=== PATIENT | female | born 1990 | race Caucasian/White ===

== ENCOUNTER 2018-12-23 10:47 | Emergency (ER) | payer MEDICAID ==
[2018-12-23 11:27] LABS: Bilirubin Negative (Negative); Blood, Urine Large (Negative); Clarity CLEAR (Clear); Glucose, Urine (Dipstick) Negative (Negative); Leukocyte Negative (Negative); Nitrite Negative (Negative); Protein, Urine (Dipstick) Negative (Neg-Trace); Specific Gravity, Urine 1.006 (1.002-1.036); Urobilinogen 0.2 mg/dL (0.2-1.0)
[2018-12-23 11:34] LABS: Bacteria/HPF Rare-Few HPF (None Seen); Hyaline Casts/LPF 0-3 HYALINE CAST LPF (0-3 Hyaline); RBC/HPF 0-3 HPF (0-3); Squamous Epithelial 0-3 HPF (0-3); WBC/HPF 0-3 HPF (0-3)
[2018-12-23 13:05] LABS: #Basophils 0.1 thou/uL (0.0-0.2); #Eosinphils 0.4 thou/uL (0.0-0.7); #Lymphocytes 2.9 thou/uL (1.20-3.40); #Monocytes 0.7 thou/uL (0.11-0.59); #Neutrophils 6.4 thou/uL (1.40-6.50); %Basophils 0.7 % (0.0-1.0); %Eosinophils 3.8 % (0.0-10.0); %Lymphocytes 27.5 % (21.0-51.0); %Monocytes 6.8 % (0.0-10.0); %Neutrophils 61.2 % (42.0-75.0); Hemoglobin 13.6 g/dL (12.0-16.0); Mean Corpuscular HGB CONC 33.5 g/dL (32.0-36.0); Mean Corpuscular Hemoglobin 32.4 pg (27.0-31.0); Mean Platelet Volume 8.6 fL (7.4-10.4); Platelet Count 293 thou/uL (130-400); RBC Distribution Width 11.4 % (11.5-14.5); Red Blood Cell (RBC) Count 4.18 mill/uL (4.20-5.40); White Blood Cell (WBC) Count 10.5 thou/uL (4.8-10.8)
--- NOTE | 2018-12-23 13:53 | ULT ---
PELVIC ULTRASOUND: Date: 12/23/18 HISTORY: Vaginal bleeding since . Bright red blood. COMPARISON: None. TECHNIQUE: Transabdominal and endovaginal imaging of the pelvis is performed. Ovaries are interrogated with Feliz scale, color flow, Doppler imaging, and spectral waveform analysis. FINDINGS: Backside Grinder states active bleeding while exam being performed. Uterus is identified, measuring 7.7 x 3.0 x 7.7 cm. Within the endometrium is a gestational sac with a diameter of 0.7 cm, corresponding to a gestational age of 5 weeks/3 days. Yolk sac is not appreciat ed. Questionable pole. Gestational age of pole is not documented due to the size of the f etal pole. In addition, heart tones are not appreciated. The gestational sac is in the mid port ion of the endometrium. Right ovary has a normal echotexture, measuring 2.3 x 2.2 x 1.4 cm. In the left adnexa, there is a hy poechoic focus measuring 2.9 x 2.8 x 1.7 cm, presumed to be the left ovary. There is no significant free fluid in the pelvis. Ovarian Doppler: There is vascular flow to the left and right adnexal structures, which are presumed to be ovaries. IMPRESSION: Findings suggesting an intrauterine gestation without definite heart tones. Given the presence of active bleeding, an ongoing spontaneous is favored. Nevertheless, follow-up ultrasound an d serial beta HCGs are recommended. POS: MYCHAL
== END 2018-12-23 13:52 | disposition home or self-care (01) ==
LOC: ERS 10:47
DX: O20.0 Threatened abortion (principal); O99.331 Smoking (tobacco) complicating pregnancy, first trimester; F17.210 Nicotine dependence, cigarettes, uncomplicated; Z3A.01 Less than 8 weeks gestation of pregnancy
CPT/HCPCS: 36415; 76856; 81003; 81015; 84702; 85025; 86900; 86901

== ENCOUNTER 2020-08-26 16:37 | Day surgery (SDC) | payer MEDICAID, OTHER ==
[2020-08-26 17:08] VITALS: BMI 40.8
[2020-08-26] MEDS ORDERED: hydrALAZINE 20 MG/ML VIAL SLOW IVP PRN (17:39)
[2020-08-26 18:12] LABS: #Basophils 0.1 thou/uL (0.0-0.2); #Eosinphils 0.2 thou/uL (0.0-0.7); #Monocytes 0.9 thou/uL (0.11-0.59); #Neutrophils 6.8 thou/uL (1.40-6.50); %Basophils 0.6 % (0.0-1.0); %Eosinophils 2.1 % (0.0-10.0); %Lymphocytes 20.3 % (21.0-51.0); %Monocytes 8.7 % (0.0-10.0); %Neutrophils 68.3 % (42.0-75.0); Hemoglobin 10.7 g/dL (12.0-16.0); Mean Corpuscular HGB CONC 33.3 g/dL (32.0-36.0); Mean Corpuscular Hemoglobin 33.1 pg (27.0-31.0); Mean Corpuscular Volume 99.3 fL (78.0-98.0); Mean Platelet Volume 10.2 fL (7.4-10.4); Platelet Count 216 thou/uL (130-400); RBC Distribution Width 13.2 % (11.5-14.5); Red Blood Cell (RBC) Count 3.24 mill/uL (4.20-5.40); White Blood Cell (WBC) Count 9.9 thou/uL (4.8-10.8)
[2020-08-26 18:31] LABS: ALT (SGPT) 29 U/L (8-55); AST (SGOT) 27 U/L (5-34); Albumin 2.9 g/dL (3.5-5.0); Alkaline Phosphatase 150 U/L (40-110); Anion Gap 12 mmol/L (10-20); BUN (Urea Nitrogen) 11 mg/dL (7.0-18.7); Bilirubin, Total 0.5 mg/dL (0.2-1.2); Calc. Creatinine Clearance 234 mL/min (70-130); Calcium 8.9 mg/dL (7.8-10.44); Carbon Dioxide 22 mmol/L (22-29); Chloride 107 mmol/L (98-107); Globulin 3.1 g/dL (2.4-3.5); Glucose 103 mg/dL (70-105); Sodium 137 mmol/L (136-145)
[2020-08-26 19:12] LABS: Creatinine, Urine 91.03 mg/dL (47-110)
--- NOTE | 2020-08-26 20:15 | PDOC.FPROB ---
FMR OB H&P: HPI - History of Present Illness Chief Complaint: vision changes History of Present Illness: Pt is a 30 yo @36.3wga who presents from [facility] with cc of vision change with outpatient diagnosis of scotoma. She had no elevated pressures at clinic today. Talking with patient, it seems like over the last several weeks patient endorses vision changes that occur only whenever she moves her head quickly and changes directions or goes from sitting or laying down to standing. She de scribes her vision as a little blurry with spots that "look like fire flies" and shortly after onset, resolve spontaneously. She states she does not drink much water and does not think she is hydrated. These episodes never occur at rest. She denies EWING, CP, SOB, abdominal pain. She endorses hand and LE swelling. She endorses no history of high BP and no complications with her previous delivery. Endorses good movement, no VB/VD/LOF/ctx. 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 denies: eye pain, double vision Cardiovascular: denies: chest pain, palpitation Gastrointestinal: denies: abdominal pain, vomiting, diarrhea Genitourinary (Female): denies: vaginal discharge, vaginal bleeding, vaginal pressure Neurologic: denies: numbness, syncope, seizures, weakness, loss of counsciousness, headache FMR OB H&P: Vital Signs - Maternal Vital signs: BP mainly 130SBP Two readings of SBP >140 one reading of 161/71 but BP cuff was around patient's elbow. Once readjusted, SBP 135. - Heart Tones Baseline: 140 Variability: moderate Acceleration: present Deceleration: absent Category: category 1 [place] contractions every: irritability FMR OB H&P: Physical Exam - Physical Exam General: NAD, awake, alert and oriented HEENT: normocephalic and atraumatic, PERRLA, EOMI, MMM, grossly normal vision, grossly normal hearing Neck: supple Heart: RRR, normal S1/S2 General: CTAB, no respiratory distress Abdomen: soft, gravid, non-tender Musculoskeletal: FROM in all four extremities Skin: no rash, good tugor, no jaundice Lymphatic: no unusual bruising or bleeding Psychiatric: intact recent and remote memory, good judgement and insight, normal mood and affect FMR OB H&P: Results - Labs Lab results: Laboratory Results - last 24 hr 08/26/20 08/26/20 08/26/20 17:35 17:58 17:58 WBC 9.9 RBC 3.24 L Hgb 10.7 L Hct 32.2 L MCV 99.3 H MCH 33.1 H MCHC 33.3 RDW 13.2 Plt Count 216 MPV 10.2 Neutrophils % 68.3 Lymphocytes % 20.3 L Monocytes % 8.7 Eosinophils % 2.1 Basophils % 0.6 Neutrophils # 6.8 H Lymphocytes # 2.0 Monocytes # 0.9 H Eosinophils # 0.2 Basophils # 0.1 Sodium 137 Potassium 4.0 Chloride 107 Carbon Dioxide 22 Anion Gap 12 BUN 11 Creatinine 0.63 Estimated GFR (MDRD) Greater than 90 Glucose 103 Calcium 8.9 Total Bilirubin 0.5 AST 27 ALT 29 Alkaline Phosphatase 150 H Serum Total Protein 6.0 Albumin 2.9 L Globulin 3.1 Albumin/Globulin Ratio 0.9 L U Random Total Protein 60 H Urine Creatinine 91.03 FMR OB H&P: A/P Disposition: Pt is a 30 yo @36.3wga who presents from [facility] with cc of vision change with outpatient diagnosis of scotoma #vision changes * outpatient dx of scotoma, upon further questioning, seems as if vision changes are not 2/2 scotoma * likely 2/2 dehydration * encouraged PO intake and hydration #concern for pre-E: * Pre- E labs ordered: WNL with exception of urine protein/Cr ratio of .7g/day * two BP readings >140 SBP * diagnosis of Pre-E given these two findings * plan for expectant management and delivery at 37 weeks * instructed patient to follow up with [facility] tomorrow at get scheduled for ind uction and to get a BP cuff * return to L&D precautions given Discussion: Date/Time: 08/26/202011 This H&P was discussed with Dr. Tesfaye and Dr. Solis who agree with the above documentation and plan. Addendum - Attending - Attending Attestation Date/Time: 08/27/20 07 I personally evaluated the patient and discussed the management with Dr. Roberto. I agree with the History, Examination, Assessment and Plan documented above. New dx preeclampsia. No e/o severe features. F/u in clinic and schedule induction for 37 weeks.
[2020-08-28 20:33] LABS: Chlam.trachomatis by PCR,Urine Not Detected (NotDetected)
== END 2020-08-26 20:55 | disposition home or self-care (01) ==
LOC: L&D/OP 16:37
PROVIDERS: ATTEND Family Medicine
DX: O14.93 Unspecified pre-eclampsia, third trimester (principal); O99.891 Other specified diseases and conditions complicating pregnancy; H53.459 Other localized visual field defect, unspecified eye; Z3A.36 36 weeks gestation of pregnancy
CPT/HCPCS: 36415; 80053; 82570; 84156; 85025; 87480; 87491; 87510; 87591; 87660

== ENCOUNTER 2020-08-30 12:19 | Inpatient (IN) | payer OTHER ==
[2020-08-30] MEDS ORDERED: Bupivacaine 0.25% HCL 30 ML VIAL ONE (12:46)
[2020-08-30] MEDS: Lactated Ringer's 1,000 ML IV SCH ×2 (13:40→15:16)
[2020-08-30 13:52] VITALS: BMI 40.3
[2020-08-30] MEDS ORDERED: Acetaminophen 500 MG TAB PO PRN (14:10)
[2020-08-30] MEDS ORDERED: Butorphanol Tartrate 1 MG/ML VIAL SLOW IVP PRN (14:10)
[2020-08-30] MEDS ORDERED: Promethazine HCl 25 MG/ML VIAL IM PRN (14:10)
[2020-08-30] MEDS ORDERED: Ibuprofen 800 MG TAB PO PRN (14:10)
[2020-08-30] MEDS ORDERED: Ondansetron PF 4 MG/2 ML Vial IVP PRN (14:10)
[2020-08-30] MEDS ORDERED: hydrALAZINE 20 MG/ML VIAL SLOW IVP PRN (14:10)
[2020-08-30] MEDS ORDERED: NS / Oxytocin 40 units/1000ml 1,000 ML IV PRN (14:10)
[2020-08-30] MEDS ORDERED: Lidocaine 1% (PF) 30 ML VIAL SC PRN (14:10)
--- NOTE | 2020-08-30 14:21 | PDOC.FPROB ---
FMR OB H&P: HPI - History of Present Illness Chief Complaint: mIOL for pre-eclampsia Indentification: 30yo at 37.0wks History of Present Illness: This is a 30yo at 37.0wks who was sent from the Clinic for mIOL due to a diagnosis of pre-eclampsia. She currently denies EWING, vision changes, RUQ pain, dyspnea, CP. She endorses some LE and hand edema. Primary Care Physician: [facility] - Dr. Alma Salazar FMR OB H&P: Current - Care : 3 Para: 1011 Gestational age: 37.0 Due date: 09/20/2020 Dating Criteria: 2T U/S Course/Complications: Late to care Multiple positive UDS during Diagnosed with preeclampsia at 36.4 WGA - OB Labs Blood type: O RH: positive Antibody Screen: negative HIV: negative RPR: negative HepBsAg: negative Rubella: immune Urine drug screen: positive Gonorrhea: negative Chlamydia: negative Pap Smear: NILM, HR-HPV 16 positive 1 hour gtt: failed 3 hour GTT: passed GBS: unknown (Final result pending. 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 No issues with anesthesia. - Social History Social History: Endorses tobacco use, denies drug/alcohol use during - Family History Family History: Hx of DM in MGM and Mom. Denies family hx of HTN or complications with anesthesia FMR OB H&P: Medications - Current Home Medications: Medication Instructions Recorded Confirmed Type Vit37/Iron/Folic Acid 1 tab PO DAILY 08/26/20 08/26/20 History [Prenata Chewable Tablet] Pantoprazole Sodium [Protonix] 20 mg PO DAILY 08/30/20 08/30/20 History Allergies/Adverse Reactions: Allergies Allergy/AdvReac Type Severity Reaction Status Date / Time No Known Allergies Allergy Verified 08/26/20 17:02 FMR OB H&P: ROS - Review of Systems General: denies: fever/chills Eyes: denies: vision changes, double vision, scotomas (Only when bending/standing too quickly), floaters ENT: denies: nasal congestion, sore throat Cardiovascular: denies: chest pain, edema Respiratory: denies: cough, congestion, shortness of breath Gastrointestinal: denies: abdominal pain, nausea, vomiting, diarrhea Genitourinary (Female): denies: dysuria, hematuria, vaginal discharge, vaginal bleeding, contractions Musculoskeletal: reports: swelling (in LE and hands) Neurologic: reports: headache (resolves with ibuprofen) Integumentary: denies: itching, rash Hematologic/Lymphatic: denies: prolonged or excessive bleeding FMR OB H&P: Vital Signs - Maternal Vital signs: Vital Signs - First Documented Temp Pulse Resp BP Pulse Ox 98.6 F 106 H 18 156/82 H 99 08/30/20 13:42 08/30/20 13:42 08/30/20 13:42 08/30/20 13:42 08/30/20 13:42 - Heart Tones Baseline: 140 Variability: marked Acceleration: present Deceleration: absent Category: category 1 [place] contractions every: N/A FMR OB H&P: Physical Exam - Physical Exam General: NAD, awake, alert and oriented HEENT: normocephalic and atraumatic, EOMI, grossly normal vision, grossly normal hearing Neck: supple, FROM Chest: non-tender to palpation, no lesions Heart: RRR, normal S1/S2, no murmurs/rubs/gallops, pulses present General: CTAB, no respiratory distress, good air movement Abdomen: soft, gravid, bowel sound present Musculoskeletal: pulses present (2+ dp b/l), FROM in all four extremities Neurological: no focal deficit Skin: no rash Lymphatic: no unusual bruising or bleeding Psychiatric: intact recent and remote memory, good judgement and insight, normal mood and affect - Pelvic Exam SVE: 2/50/-2 Alvares score: 5 Membranes: Intact FMR OB H&P: A/P Disposition: This is a 30yo at 37.0 WGA sent from Clinic for mIOL due to pre-eclampsia sIUP with pre-eclampsia - Pre-eclampsia diagnosed at 36.4wks. mIOL at 37.0 - Continuous FM reassuring: baseline 140, marked variability, multiple accels - Cervical check /-2 at 1430 Recheck in 3-4hrs - Alvares score 5 - Cytotec for induction - GBS culture results pending Multi-drug use in - Tobacco use during Smoking cessation counseling Can provide nicotine patch, if needed - Multiple UDS positive for THC, amphetamines, methamphetamines UDS ordered CM consulted GERD - Takes Protonix. Continue Anemia in - CBC ordered - On Fe supplementation. Continue Hx of vacuum-assisted vaginal delivery NILM, positive for HR-HPV 16 - Recommend colpo at 6wks PP Dispo: anticipate Discussion: Date/Time: 08/30/20 1419 This H&P was discussed with Dr. Pankaj Gordillo and Dr. Jim Garcia who agree with the above documentation and plan. Addendum - Attending - Attending Attestation Date/Time: 08/30/20 1622 I personally evaluated the patient and discussed the management with Dr. Monroe. I agree with the History, Examination, Assessment and Plan documented above with any addition or exceptions noted below.
[2020-08-30 14:31] LABS: Hemoglobin 11.5 g/dL (12.0-16.0); Mean Corpuscular HGB CONC 34.1 g/dL (32.0-36.0); Mean Corpuscular Hemoglobin 33.9 pg (27.0-31.0); Mean Corpuscular Volume 99.6 fL (78.0-98.0); Mean Platelet Volume 10.6 fL (7.4-10.4); Platelet Count 256 thou/uL (130-400); RBC Distribution Width 13.8 % (11.5-14.5); Red Blood Cell (RBC) Count 3.39 mill/uL (4.20-5.40); White Blood Cell (WBC) Count 13.5 thou/uL (4.8-10.8)
[2020-08-30 14:46] LABS: Amphetamine Not Detected (NotDetected); Barbiturates Screen Not Detected (NotDetected); Benzodiazepine Screen Not Detected (NotDetected); Cocaine Metabolite Screen Not Detected (NotDetected); Medtox Control Line Valid? VALID (VALID); Medtox Reader # READER 4; Methadone Not Detected (NotDetected); Methamphetamine Detected (NotDetected); Opiate Screen Not Detected (NotDetected); Oxycodone Screen Not Detected (NotDetected); Phencyclidine (PCP) Not Detected (NotDetected); THC/Cannabinoid Screen Not Detected (NotDetected); Tricyclic Screen Not Detected (NotDetected)
[2020-08-30] MEDS ORDERED: Misoprostol 100 MCG TAB VAG SCH (15:00)
[2020-08-30 15:11] LABS: HBSAg Index 0.16 S/CO (0-0.99); Hep B Surf Ag Non-Reactive S/CO (NonReactive); Syphilis Antibody Nonreactive (Nonreactive); Syphilis Antibody Index 0.21 S/CO (<1.00 Non-Reactive)
--- NOTE | 2020-08-30 19:02 | PDOC.LDPN ---
Labor & Delivery Progress Note - Subjective Subjective: comfortable, painful contractions - Objective Abnormal vital signs: BP 157, 161 SBP, repeats have been SBP 130s General: NAD Uterine fundus: non tender SVE: /-1 FHT: category 1, variability present [place] contractions every: 2 mins Plan: continue plan of care -: This is a 30yo at 37.0 WGA sent from Clinic for mIOL due to pre-eclampsia sIUP with pre-eclampsia - Pre-eclampsia diagnosed at 36.4wks. mIOL at 37.0 - Continuous FM reassuring: baseline 135, moderate variability, multiple accels - Cervical check /-2 at 1430, /-1@ 1915 Recheck in 2hrs - Alvares score 8 - Start balloon and pitocin - GBS culture results pending Multi-drug use in - Tobacco use during Consider nicotine patch - UDS + for meth GERD - Takes Protonix. Continue Anemia in - 11.5/33.8 Hgb Hct - Continue Fe supplementation Addendum - Attending - Attending Attestation Date/Time: 08/30/202055 I personally evaluated the patient and discussed the management with Dr. Phipps I agree with the History, Examination, Assessment and Plan documented above with any addition or exceptions noted below. Not able to place second miso. Will therefore place Cook balloon and start pitocin as tolerated. [place]
[2020-08-30] MEDS: Fentanyl 4 mcg/Bup 0.1% Cadd 100 ML in Premix Bag 1 BAG EPIDURAL SCH (21:12)
[2020-08-30] MEDS ORDERED: NS w/ Oxytocin 10 units 500 ML IV SCH (21:45)
[2020-08-30 22:41] LABS: SARS-CoV-2 MS2 Positive; SARS-CoV-2 N Gene Negative; SARS-CoV-2 S Gene Negative; SARS-CoV-2 by NAA Not Detected (NotDetected); SARS-CoV-2 orf1ab Negative
[2020-08-30 23:22] LABS: Potassium 3.8 mmol/L (3.5-5.1); Sodium 137 mmol/L (136-145)
[2020-08-30 23:23] LABS: Anion Gap 15 mmol/L (10-20); BUN (Urea Nitrogen) 11 mg/dL (7.0-18.7); Carbon Dioxide 21 mmol/L (22-29); Chloride 105 mmol/L (98-107)
[2020-08-30 23:24] LABS: Bilirubin, Total 0.6 mg/dL (0.2-1.2); Calc. Creatinine Clearance 243 mL/min (70-130); Calcium 8.9 mg/dL (7.8-10.44); Globulin 3.2 g/dL (2.4-3.5); Glucose 86 mg/dL (70-105); Protein, Total 6.2 g/dL (6.0-8.3)
[2020-08-30 23:25] LABS: ALT (SGPT) 22 U/L (8-55); AST (SGOT) 17 U/L (5-34); Alcohol Less than 10 mg/dL (Less than 10); Alkaline Phosphatase 170 U/L (40-110)
--- NOTE | 2020-08-30 23:35 | PDOC.LDPN ---
Labor & Delivery Progress Note - Subjective Subjective: comfortable - Objective Abnormal vital signs: one SBP 175 while getting epidural, otherwise ~130s SBP General: NAD, resting SVE: Balloon in place [place] contractions every: 2 mins Plan: continue plan of care -: This is a 30yo at 37.0 WGA sent from Clinic for mIOL due to pre-eclampsia sIUP with pre-eclampsia - Pre-eclampsia diagnosed at 36.4wks. mIOL at 37.0 - Continuous FM reassuring: baseline 135, moderate variability, multiple accels - Cervical check 50/-2 at 1430, 80/-1@ 1915, Balloon in place @2230 Recheck in 2hrs - Alvares score 8 - Balloon in place, pitocin not running 2/2 tachysystole - GBS culture negative Multi-drug use in - Tobacco use during Consider nicotine patch - UDS + for meth GERD - Takes Protonix. Continue Anemia in - 11.5/33.8 Hgb Hct - Continue Fe supplementation Addendum - Attending - Attending Attestation Date/Time: 08/31/20 [id number] I personally evaluated the patient and discussed the management with Dr. Phipps I agree with the History, Examination, Assessment and Plan documented above with any addition or exceptions noted below. Doing well continue current plan. Balloon still in place. Fetus cat 1 tracing. Pitocin per protocol. [place]
--- NOTE | 2020-08-31 02:19 | PDOC.LDPN ---
Labor & Delivery Progress Note - Subjective Subjective: comfortable - Objective Vital signs reviewed and normal: yes SVE: balloon in place FHT: category 1 [place] contractions every: 2-3 mins Plan: continue plan of care -: This is a 30yo at 37.0 WGA sent from Clinic for mIOL due to pre-eclampsia sIUP with pre-eclampsia - Pre-eclampsia diagnosed at 36.4wks. mIOL at 37.0 - Continuous FM reassuring: baseline 135, moderate variability, multiple accels - Cervical check /-2 at 1430, /-1@ 1915, Balloon placed and pitocin started @ [address] @[address] @ 0 Recheck in 2hrs - Balloon in place, pitocin not running, will try to restart pitocin if contractions are stable - GBS culture negative Multi-drug use in - Tobacco use during Consider nicotine patch - UDS + for meth GERD - Takes Protonix. Continue Anemia in - 11.5/33.8 Hgb Hct - Continue Fe supplementation Addendum - Attending - Attending Attestation Date/Time: 08/31/20 [id number] I personally evaluated the patient and discussed the management with Dr. Phipps I agree with the History, Examination, Assessment and Plan documented above with any addition or exceptions noted below. Continue current plan. Cat 1 tracing. [place]
[2020-08-31] MEDS: NS w/ Oxytocin 10 units 500 ML IV SCH ×2 (03:39→22:24)
[2020-08-31] MEDS: Fentanyl 4 mcg/Bup 0.1% Cadd 100 ML in Premix Bag 1 BAG EPIDURAL SCH ×2 (04:19→11:27)
--- NOTE | 2020-08-31 04:43 | PDOC.LDPN ---
Labor & Delivery Progress Note - Subjective Subjective: comfortable, no concerns - Objective Abnormal vital signs: SBPX1 of 165, otherwise in 130-140/80-90 General: NAD SVE: /-1 FHT: category 2, variability present [place] contractions every: 2-3 mins Plan: continue plan of care, pitocin for augmentation -: This is a 30yo at 37.1 WGA sent from Clinic for mIOL due to pre-eclampsia sIUP with pre-eclampsia - Pre-eclampsia diagnosed at 36.4wks. mIOL at 37.0 - Continuous FM reassuring: baseline 135, moderate variability, multiple accels - Cervical check /-2 at 1430, @ 1915, Balloon placed and pitocin started @ [address] until 043-- Recheck in 2hrs - pitocin at 1, will increase as tolerated by contractions - GBS culture negative Multi-drug use in - Tobacco use during Consider nicotine patch - UDS + for meth GERD - Takes Protonix. Continue Anemia in - 11.5/33.8 Hgb Hct - Continue Fe supplementation Addendum - Attending - Attending Attestation Date/Time: 08/31/20 9192 I personally evaluated the patient and discussed the management with Dr. Phipps I agree with the History, Examination, Assessment and Plan documented above with any addition or exceptions noted below. Balloon now out. Continue pitocin. Will discuss with PCP and likely AROM when able and if patient agrees. [place]
--- NOTE | 2020-08-31 09:32 | PDOC.LDPN ---
Labor & Delivery Progress Note - Subjective Subjective: comfortable, no concerns - Objective Vital signs reviewed and normal: yes General: NAD, resting Uterine fundus: non tender Dilation: 7 Effacement: 90% Station: -2 FHT: category 1 (baseline 135, multiple accels, moderate variability, no decels), variability present [place] contractions every: 2-3min Procedures: IUPC and FSE placed AROM: bloody fluid (blood-tinged) IUPC placed: yes FSE placed: yes Plan: continue plan of care, pitocin for augmentation -: This is a 30yo at 37.1 WGA sent from Clinic for mIOL due to pre-eclampsia sIUP with pre-eclampsia - Pre-eclampsia diagnosed at 36.4wks. mIOL at 37.0 BP have been below severe range. Continue to monitor. - Continuous FM reassuring: baseline 135, moderate variability, multiple accels - Cervical check /-2 at 1430 * 280/-1@ 1915 * Balloon placed and pitocin started @ 2019 * Balloon in place until 0430--80/-1 * 4-/-2 @ 0630 * /-2 + IUPC + FSE @ 0915 * Recheck in 2hrs - pitocin at 3, will increase as tolerated by contractions - GBS culture negative Multi-drug use in - Tobacco use during Consider nicotine patch - UDS + for meth GERD - Takes Protonix. Continue Anemia in - 11.5/33.8 Hgb/ Hct - Continue Fe supplementation
--- NOTE | 2020-08-31 11:46 | PDOC.LDPN ---
Labor & Delivery Progress Note - Subjective Subjective: comfortable, vaginal pressure, no concerns - Objective Vital signs reviewed and normal: yes General: NAD, resting Dilation: 8 Effacement: 100% Station: -1 FHT: category 1 (Baseline 130s, moderate variability, multiple accels, no decels), variability present [place] contractions every: 2-4 min Procedures: None AROM: bloody fluid (blood-tinged) IUPC placed: yes FSE placed: yes Plan: continue plan of care, pitocin for augmentation -: This is a 30yo at 37.1 WGA sent from Clinic for mIOL due to pre-eclampsia sIUP with pre-eclampsia - Pre-eclampsia diagnosed at 36.4wks. mIOL at 37.0 BP have been below severe range. Continue to monitor. - FHT Cat 1: baseline 130, moderate variability, multiple accels - Cervical check 50/-2 at 1430 * 2/80/-1@ 1915 * Balloon placed and pitocin started @ 2019 * Balloon in place until 0430--380/-1 * 4-80/-2 @ 0630 * 7/90/-2 + AROM + IUPC + FSE @ 0915. Posterior * 8100/-1 @ 1130. Posterior * Recheck in 2hrs - pitocin at 5, will increase as tolerated by contractions - GBS culture negative Multi-drug use in - Tobacco use during Consider nicotine patch - UDS + for meth GERD - Takes Protonix. Continue Anemia in - 11.5/33.8 Hgb/ Hct - Continue Fe supplementation Dispo: anticipate
--- NOTE | 2020-08-31 13:10 | PDOC.LDPN ---
Labor & Delivery Progress Note - Subjective Subjective: comfortable, vaginal pressure, no concerns - Objective Vital signs reviewed and normal: yes General: NAD, resting Dilation: 8-9 Effacement: 100% Station: 0 FHT: category 1, variability present [place] contractions every: 2-3min Plan: continue plan of care, pitocin for augmentation -: This is a 30yo at 37.1 WGA sent from Clinic for mIOL due to pre-eclampsia sIUP with pre-eclampsia - Pre-eclampsia diagnosed at 36.4wks. mIOL at 37.0 BP have been below severe range. Continue to monitor. - FHT Cat 1: baseline 130, moderate variability, multiple accels - Cervical check 50/-2 at 1430 * 2/80/-1@ 1915 * Balloon placed and pitocin started @ 2019 * Balloon in place until 0430--3/80/-1 * 4-/80/-2 @ 0630 * 7/90/-2 + AROM + IUPC + FSE @ 0915. Posterior * 8/100/-1 @ 1130. Posterior * 8-9/100/0 @ 1300 - Ctx q2-3min and adequate - Baby LOT - pitocin at 5, will increase as tolerated by contractions - GBS culture negative Multi-drug use in - Tobacco use during Consider nicotine patch - UDS + for meth GERD - Takes Protonix. Continue Anemia in - 11.5/33.8 Hgb/ Hct - Continue Fe supplementation Dispo: anticipate
[2020-08-31] MEDS: Lactated Ringer's 1,000 ML IV SCH ×2 (16:12→21:19)
[2020-08-31] MEDS ORDERED: Benzocaine-Menthol 82.5 ML CAN TOP PRN (16:28)
[2020-08-31] MEDS ORDERED: Bisacodyl 10 MG SUPP PR PRN (17:28)
[2020-08-31] MEDS ORDERED: Adacel (T-DAP) 0.5 ML SYRINGE IM ONE (17:28)
[2020-08-31] MEDS ORDERED: Milk Of Magnesia 30 ML UDCUP PO PRN (17:28)
[2020-08-31] MEDS ORDERED: diphenhydrAMINE 25 MG CAP PO PRN (17:28)
[2020-08-31] MEDS ORDERED: Preparation H Ointment 28 GM TUBE PR PRN (17:28)
[2020-08-31] MEDS ORDERED: NS / Oxytocin 40 units/1000ml 1,000 ML IV SCH (17:28)
--- NOTE | 2020-08-31 17:46 | PDOC.OPDEL ---
OB Operative/Delivery Note Delivery Dr/Surgeon: Edith/ Pre-Delivery Diagnosis: medically indicated induction (d/t Pre-eclampsia) Weeks gestation: 37 (37.1) Anesthesia: epidural - Additional Findings/Plan Placenta delivered: spontaneous Repaired Obstetrical Laceration: 2nd degree Estimated blood loss: 432mL Compilations/Other Findings: Delivering Physician: Javi Salazar Attending: Dr. Jim Garcia Procedure: Spontaneous Vaginal Delivery Anesthesia: epidural QBL: 432 ml Pre-op Diagnosis: 1. Term intrauterine in labor 2. Pre-eclampsia 3. Polysubstance abuse in 4. Hx of VAVD 5. Hx of miscarriage Post-op Diagnosis: 1. Term intrauterine , delivered 2-5. same as above Indications: A 30y/o female presented for mIOL due to pre-eclampsia Delivery Note: This is a 30yo F G3 now P2012 @ 37.1wks who delivered a viable M infant at 1547 on 08/31/2020. Following an uneventful antepartum course, a vigorous M was delivered over a 2nd degree laceration in the OA position. Anterior Shoulder and then remainder of the body delivered. No nuchal cord. The head was held down and mouth and nares were bulb suctioned. Cord clamped after delayed cord clamping and cut and cord blood collected. Placenta delivered intact in the Sanchez presentation with a 3 vessel cord noted. Fundal massage was performed and the fundus was firm. The cervix was inspected and found to be free of lacerations. 2nd degree laceration noted and repaired with 3-0 Vicryl in the usual fashion with good approximation and hemostasis. went to nursery in good condition for routine care. Apgars were 8/9 at 1 & 5 minutes, respectively. Patient tolerated delivery well and went to after routine recovery/care. Post delivery plan: routine recovery
[2020-08-31] MEDS: Ferrous Sulfate 325 MG TAB PO SCH (20:56)
[2020-08-31] MEDS: Docusate Calcium (SURFAK) 240 MG CAP PO SCH (21:17)
[2020-08-31] MEDS: Ibuprofen 800 MG TAB PO SCH (21:18)
[2020-08-31] MEDS: Acetaminophen 650 MG/20.3 ML UDCUP PO SCH ×2 (21:19→23:52)
[2020-09-01] MEDS: Lactated Ringer's 1,000 ML IV SCH (05:02)
[2020-09-01] MEDS: Ibuprofen 800 MG TAB PO SCH ×3 (05:04→22:03)
[2020-09-01] MEDS: Acetaminophen 650 MG/20.3 ML UDCUP PO SCH ×4 (05:04→23:26)
[2020-09-01 05:26] LABS: Hemoglobin 10.3 g/dL (12.0-16.0); Mean Corpuscular Hemoglobin 33.1 pg (27.0-31.0); Mean Platelet Volume 10.2 fL (7.4-10.4); Platelet Count 204 thou/uL (130-400); RBC Distribution Width 13.6 % (11.5-14.5); Red Blood Cell (RBC) Count 3.11 mill/uL (4.20-5.40); White Blood Cell (WBC) Count 13.6 thou/uL (4.8-10.8)
--- NOTE | 2020-09-01 07:22 | PDOC.PP ---
Post Progress Note Post Day #: 1 Subjective: Feeling well. Eating, voiding, passing flatus. Pain well controlled. Ambulating. She reports her lochia has been more than a period. Denies headache, SOB, cough, chest pain, palpitations, dizziness, leg pain. PO intake tolerated: yes Flatus: yes Ambulation: yes Vital Signs (12 hours) Temp Pulse Resp BP 09/01/20 04:59 98.7 F 82 16 139/70 09/01/20 00:05 98.1 F 100 16 145/65 H 08/31/20 21:10 98.5 F 98 18 135/77 08/31/20 20:05 98.8 F 100 16 144/69 H Weight Weight 113.398 kg - Physical Examination General: NAD Cardiovascular: no m/r/g, RRR Respiratory: clear to auscultation bilaterally, non-labored breathing Abdominal: + bowel sounds, lochia (minimal on pad, states it was changed 2 hours prior), no distention, appropriately TTP Extremities: negative homans (B) Neurological: no gross focal deficits Psychiatric: A&Ox3, normal affect Result Diagrams: 09/01/20 05:02 08/30/20 22:23 Additional Labs: Post Labs Hep Bs Antigen Non-Reactive S/CO (NonReactive) 08/30/20 13:23 Blood Type O POSITIVE 08/30/20 13:23 - Assessment/Plan 30 yo now delivered via PPD#1 -Pain controlled with ibuprofen/tylenol -Ambulating, voiding, passing flatus -Reports lochia more than a period, on exam very minimal bleeding on pad -QBL 432 recovery +98 ml pp, will continue to monitor, AM hemagram ordered -bottle feeding -circumcision desired Multi-drug use in - Tobacco use during Smoking cessation counseling Can provide nicotine patch, if needed - Multiple UDS positive for THC, amphetamines, methamphetamines UDS + meth CM consulted Anemia in -Hgb 10.3 this AM, will recheck AM labs NILM, positive for HR-HPV 16 - Recommend colpo at 6wks PP Katlyn Salazar MD PGY3
[2020-09-01] MEDS: Ferrous Sulfate 325 MG TAB PO SCH ×2 (07:55→17:43)
[2020-09-01] MEDS: Prenatal Vitamin 1 TAB PO SCH (08:36)
[2020-09-01] MEDS: Docusate Calcium (SURFAK) 240 MG CAP PO SCH ×2 (08:36→22:03)
[2020-09-01 21:12] VITALS: TEMP 97.6
[2020-09-01] MEDS: NS w/ Oxytocin 10 units 500 ML IV SCH (21:14)
[2020-09-02] MEDS: Ibuprofen 800 MG TAB PO SCH (05:00)
[2020-09-02] MEDS: Acetaminophen 650 MG/20.3 ML UDCUP PO SCH (05:00)
--- NOTE | 2020-09-02 06:50 | PDOC.PP ---
Post Progress Note Post Day #: 2 Subjective: Pain well controlled. She would like to leave today if she can. PO intake tolerated: yes Flatus: yes Ambulation: yes Vital Signs (12 hours) Temp Pulse Resp BP 09/01/20 20:30 97.6 F 98 16 130/85 Weight Weight 113.398 kg - Physical Examination General: NAD Cardiovascular: no m/r/g, RRR Respiratory: clear to auscultation bilaterally, non-labored breathing Abdominal: + bowel sounds, no distention, appropriately TTP Extremities: negative homans (B) Neurological: no gross focal deficits Psychiatric: A&Ox3, normal affect Result Diagrams: 09/01/20 05:02 08/30/20 22:23 Additional Labs: Post Labs Hep Bs Antigen Non-Reactive S/CO (NonReactive) 08/30/20 13:23 Blood Type O POSITIVE 08/30/20 13:23 - Assessment/Plan 30 yo now delivered via PPD#2 -Pain controlled with ibuprofen/tylenol -Ambulating, voiding, passing flatus -lochia less than a period -morning AM hemagram pending -bottle feeding -circumcision desired, however baby was started on phototherapy, will need to have circ tomorrow Multi-drug use in - Tobacco use during - Multiple UDS positive for THC, amphetamines, methamphetamines UDS + meth CM consulted, CPS visited pt yesterday Anemia in -Hgb 10.3 yesterday, am Hemagram is still pending NILM, positive for HR-HPV 16 - Recommend colpo at 6wks PP Dispo: Plan to discharge to home today, mother declined bed and breakfast. will need to stay at least one more night for phototherapy. Katlyn Salazar MD PGY3
[2020-09-02 06:59] LABS: Hemoglobin 10.1 g/dL (12.0-16.0); Platelet Count 209 thou/uL (130-400)
[2020-09-02] MEDS: Docusate Calcium (SURFAK) 240 MG CAP PO SCH (09:27)
[2020-09-02] MEDS: Prenatal Vitamin 1 TAB PO SCH (09:27)
[2020-09-02] MEDS: Ferrous Sulfate 325 MG TAB PO SCH (09:28)
[2020-09-02 11:35] VITALS: BP 128/83
== END 2020-09-02 11:39 | disposition home or self-care (01) | DRG 807 ==
LOC: L&D 12:19 → 3SW 08-31 18:32
PROVIDERS: ADMIT Family Medicine; ATTEND Family Medicine
PROC: 10E0XZZ Delivery of Products of Conception, External Approach (ICD-10-PCS; principal; 2020-08-31)
PROC: 0KQM0ZZ Repair Perineum Muscle, Open Approach (ICD-10-PCS; 2020-08-31)
PROC: 10907ZC Drainage of Amniotic Fluid, Therapeutic from Products of Conception, Via Natural or Artificial Opening (ICD-10-PCS; 2020-08-31)
PROC: 3E0P7VZ Introduction of Hormone into Female Reproductive, Via Natural or Artificial Opening (ICD-10-PCS; 2020-08-31)
PROC: 3E033VJ Introduction of Other Hormone into Peripheral Vein, Percutaneous Approach (ICD-10-PCS; 2020-08-31)
DX: O14.94 Unspecified pre-eclampsia, complicating childbirth (principal); Z37.0 Single live birth; Z20.828 Contact with and (suspected) exposure to other viral communicable diseases; O99.324 Drug use complicating childbirth; O99.334 Smoking (tobacco) complicating childbirth; F17.210 Nicotine dependence, cigarettes, uncomplicated; F19.90 Other psychoactive substance use, unspecified, uncomplicated; O99.62 Diseases of the digestive system complicating childbirth; O99.02 Anemia complicating childbirth; D64.9 Anemia, unspecified; K21.9 Gastro-esophageal reflux disease without esophagitis; O70.1 Second degree perineal laceration during delivery; Z3A.36 36 weeks gestation of pregnancy
CPT/HCPCS: 36415; 51702; 80053; 80306; 80307; 85014; 85018; 85027; 85049; 86780; 86850; 86900; 86901; 87340; 87635; S0020; U0003